=== PATIENT | male | born 1990 | race African-American/Black ===

== ENCOUNTER 2017-04-24 23:32 | Emergency (ER) | payer MEDICAID ==
--- NOTE | 2017-04-24 23:40 | ED Physician Chart ---
Chief Complaint/HPI - Patient Information Date Seen:: 04/24/17 Time Seen:: 23:33 Chief Complaint:: alcohol intoxication History of Present Illness:: 27-year-old male brought in by EMS with acute, moderate, constant, alcohol intoxication. Has associated loitering and drunk in public. Apparently someone called police because the patient was loitering. Patient brought to ER. Patient denies abdominal pain, nausea, vomiting, headache, any pain anywhere, numbness, tingling. Historian:: Patient, EMS Review:: Nurse's Note Reviewed Review of Systems - Review of Systems Other: Complete system review otherwise unremarkable except as noted in history of present illness. Past Medical History - Past Medical History Past Medical History: No significant medical hx Family History: None Social History: Non Smoker, Alcohol, No Drug Use Surgical History: None Psychiatricy History: None Medication: None Family Medical History - Family Member Mother History Unknown: Yes Physical Exam - Physical Examination Other:: INITIAL VITAL SIGNS: Reviewed by me GENERAL: Alert and interactive. No acute distress HEAD: Head is normocephalic and atraumatic EYES: EOMI. PERRL. No scleral icterus. No conjunctival injection ENT: Moist mucous membranes. NECK: Supple. No masses. Full range of motion RESPIRATORY: No tachypnea. Clear breath sounds bilaterally. No wheezing, rales, or rhonchi CV: Regular rate and rhythm. No murmurs, rubs, or gallops ABDOMEN: Soft, non-distended, non-tender. No guarding. No rebound. No masses. EXTREMITIES: No deformity. No cyanosis. No edema. SKIN: Warm and dry. No obvious rashes. NEUROLOGIC: Alert and oriented. Face is symmetric. Speech is normal. Moves all extremities equally. Motor and sensory distally intact. ED Septic Shock - . Is Septic Shock (SBP<90, OR Lactate>4 mmol\L) present?: No Reassessment (Disposition) - Reassessment Reassessment:: Patient brought to the ER after found drunk in public and loitering. Patient is alert and oriented 4 and fully cooperative. Patient has no gait abnormalities. Patient denies any pain or complaint. Ultimately the patient was discharged from the ER. Recommended that patient follow up with a primary care doctor within 2-3 days. Return to ER precautions were given. Patient says he understands and agrees with the plan. Reassessment Condition:: Improved - Diagnosis Diagnosis:: Acute Alcohol intoxication - Aftercare/Follow up Instructions Aftercare/Follow-Up Instructions:: Counseled pt regarding lab results/diagnosis & need follow up - Patient Disposition Discharge/Transfer:: Home Time:: 23:45 Condition at Disposition:: Improved ED Discharge Plan - Patient Disposition Admit/Discharge/Transfer: PT DISCHARGED HOME Condition at Disposition: Improved Instructions: Alcohol Intoxication
== END 2017-04-25 03:45 | disposition home or self-care (01) ==
LOC: ER 23:32
DX: F10.129 Alcohol abuse with intoxication, unspecified (principal); Z59.0 Homelessness
CPT/HCPCS: Z7502